=== PATIENT | male | born 1985 | race Two or more races ===

== ENCOUNTER 2018-09-19 07:14 | Emergency (ER) | payer MEDICAID ==
--- NOTE | 2018-09-19 07:47 | EDM.PDOC ---
ED HPI GENERAL MEDICAL PROBLEM - General Chief Complaint: ENT Problem Stated Complaint: RT EAR ACHE Time Seen by Provider: 09/19/18 07:43 Source of Information: Reports: Patient History Limitations: Reports: No Limitations - History of Present Illness INITIAL COMMENTS - FREE TEXT/NARRATIVE: 33 y.o.m -homeless, smokes daily- came to the ed due to right ear pain. No trauma. No other acute medical issues. BP 115/80 RR 18 Pulse ox 100% on RA Temp 36.8 pulse 87 Onset Date: 09/18/18 Onset Time: 07:05 Duration: Hour(s):, Intermittent Location: Reports: Face Quality: Reports: Ache Severity: Mild Improves with: Reports: None Worsens with: Reports: None Associated Symptoms: Reports: No Other Symptoms Right ear Pain Score (Numeric/FACES): 8 - Related Data Allergies Allergy/AdvReac Type Severity Reaction Status Date / Time No Known Allergies Allergy Verified 09/19/18 07:37 Home Meds: Home Meds Hydrocort/Neomycin/Polymyxin B [Cortisporin Otic Soln] 0.01 ml .XX Q8HR #1 bottle 09/19/18 [Rx] Hydrocort/Neomycin/Polymyxin B [Cortisporin Otic Soln] 0.01 ml .XX TID #1 bottle 09/19/18 [Rx] Social & Family History - Tobacco Use Smoking Status *Q: Current Every Day Smoker Years of Tobacco use: 7 Packs/Tins Daily: 1 - Caffeine Use Caffeine Use: Reports: None - Recreational Drug Use Recreational Drug Use: Yes Drug Use in Last 12 Months: No Recreational Drug Type: Reports: Heroin ED ROS ENT - Review of Systems Review Of Systems: See Below Constitutional: Reports: No Symptoms HEENT: Reports: Ear Pain Respiratory: Reports: No Symptoms Cardiovascular: Reports: No Symptoms Endocrine: Reports: No Symptoms GI/Abdominal: Reports: No Symptoms : Reports: No Symptoms Musculoskeletal: Reports: No Symptoms Skin: Reports: No Symptoms Neurological: Reports: No Symptoms Psychiatric: Reports: No Symptoms Hematologic/Lymphatic: Reports: No Symptoms Immunologic: Reports: No Symptoms ED EXAM, ENT - Physical Exam Exam: See Below Exam Limited By: No Limitations General Appearance: Alert, WD/WN, Mild Distress Eye Exam: Bilateral Eye: Normal Inspection Ears: Canal Swelling (erythema) Nose: Normal Inspection, Normal Mucousa, No Blood Mouth/Throat: Normal Inspection, Normal Gums, Normal Lips, Normal Oropharynx Head: Atraumatic, Normocephalic Neck: Normal Inspection, Supple, Non-Tender, Full Range of Motion Respiratory/Chest: No Respiratory Distress, Lungs Clear, Normal Breath Sounds, No Accessory Muscle Use, Chest Non-Tender Cardiovascular: Normal Peripheral Pulses, Regular Rate, Rhythm, No Edema, No Gallop, No Murmur GI/Abdominal: Normal Bowel Sounds, Soft, Non-Tender, No Organomegaly, No Abnormal Bruit, No Mass, Pelvis Stable (Male) Exam: Deferred Rectal (Males) Exam: Deferred Back: Normal Inspection, Full Range of Motion Extremities: Normal Inspection, Normal Range of Motion, Non-Tender, No Pedal Edema Neurological: Alert, Oriented, CN II-XII Intact, Normal Cognition, Normal Gait Psychiatric: Normal Affect, Normal Mood Skin: Warm, Dry, Intact, Normal Color, No Rash Lymphatic: No Adenopathy Course - Vital Signs Text/Narrative:: 33 y.o.m -homeless, smokes daily- came to the ed due to right ear pain. No trauma. No other acute medical issues. BP 115/80 RR 18 Pulse ox 100% on RA Temp 36.8 pulse 87 PE: WNWD Male with minor otitis externa right ear. Impression: Otitis externa right ear Tx: Prescription for Cortisporin ear drops Reexam: Pt was doing fine in the ED, was D/C'd after breakfast Plan: D/C with instructions Last Recorded V/S: Last Vital Signs Temp 36.3 C 09/19/18 08:30 Pulse 84 09/19/18 08:30 Resp 16 09/19/18 08:30 BP 120/87 09/19/18 08:30 Pulse Ox 100 09/19/18 08:30 Departure - Departure Time of Disposition: 07:43 Disposition: Home, Self-Care 01 Condition: Good Clinical Impression: Otitis externa Qualifiers: Noninfectious otitis externa type: unspecified noninfectious type Chronicity: acute Laterality: right - Discharge Information Prescriptions: Hydrocort/Neomycin/Polymyxin B [Cortisporin Otic Soln] 0.01 ml .XX Q8HR #1 bottle Hydrocort/Neomycin/Polymyxin B [Cortisporin Otic Soln] 0.01 ml .XX TID #1 bottle Instructions: Earache, Adult Referrals: PCP,None [Primary Care Provider] - Forms: ED Department Discharge Additional Instructions: Please apply ear drops to your right ear as recommended, please f/u, come back if your symptoms get worse acutely
== END 2018-09-19 08:50 | disposition home or self-care (01) ==
LOC: FB.ED 07:14
DX: H60.91 Unspecified otitis externa, right ear (principal); F17.210 Nicotine dependence, cigarettes, uncomplicated
CPT/HCPCS: 99283

== ENCOUNTER 2018-09-27 20:04 | Emergency (ER) | payer MEDICAID ==
[2018-09-27] MEDS ORDERED: Hydrocortisone/Neomycin/Polymyxin B Otic Susp 10 ML Bottle EARBOTH ONE (20:05)
--- NOTE | 2018-09-27 20:29 | EDM.PDOC ---
ED HPI GENERAL MEDICAL PROBLEM - General Stated Complaint: R EAR PAIN Time Seen by Provider: 09/27/18 20:04 Source of Information: Reports: Patient History Limitations: Reports: No Limitations - History of Present Illness INITIAL COMMENTS - FREE TEXT/NARRATIVE: 33 y.o.w m came to the ED because of right ear pain. Pt was seen in this ED before and was given Abx, which he said he can not afford. No trauma, no other acute medical issues. BP 113/75 RR 20 Pulse ox 100% on RA Temp 36.8 Pulse 75 Onset Date: 09/22/18 Onset Time: 16:00 Duration: Day(s):, Intermittent Location: Reports: Face Quality: Reports: Ache Severity: Mild Improves with: Reports: None Worsens with: Reports: None Context: Reports: Other Associated Symptoms: Reports: No Other Symptoms right ear Pain Score (Numeric/FACES): 8 - Related Data Allergies Allergy/AdvReac Type Severity Reaction Status Date / Time No Known Allergies Allergy Verified 09/27/18 21:48 Home Meds: Home Meds Hydrocort/Neomycin/Polymyxin B [Cortisporin Otic Soln] 0.01 ml .XX Q8HR #1 bottle 09/19/18 [Rx] Hydrocort/Neomycin/Polymyxin B [Cortisporin Otic Soln] 0.01 ml .XX TID #1 bottle 09/19/18 [Rx] Social & Family History - Caffeine Use Caffeine Use: Reports: None ED ROS ENT - Review of Systems Review Of Systems: See Below Constitutional: Reports: No Symptoms HEENT: Reports: Ear Pain Respiratory: Reports: No Symptoms Cardiovascular: Reports: No Symptoms Endocrine: Reports: No Symptoms GI/Abdominal: Reports: No Symptoms : Reports: No Symptoms Musculoskeletal: Reports: No Symptoms Skin: Reports: No Symptoms Neurological: Reports: No Symptoms Psychiatric: Reports: No Symptoms Hematologic/Lymphatic: Reports: No Symptoms Immunologic: Reports: No Symptoms ED EXAM, ENT - Physical Exam Exam: See Below Exam Limited By: No Limitations General Appearance: Alert, WD/WN, Mild Distress Eye Exam: Bilateral Eye: Normal Inspection Ears: Canal Swelling Nose: Normal Inspection Mouth/Throat: Normal Inspection, Normal Lips Head: Atraumatic, Normocephalic Neck: Normal Inspection, Supple, Non-Tender, Full Range of Motion Respiratory/Chest: No Respiratory Distress, Lungs Clear, Normal Breath Sounds Cardiovascular: Normal Peripheral Pulses, Regular Rate, Rhythm, No Edema, No Gallop, No JVD, No Murmur, No Rub GI/Abdominal: Normal Bowel Sounds, Soft, Non-Tender, No Organomegaly, No Distention, No Abnormal Bruit, No Mass, Pelvis Stable (Male) Exam: Deferred Rectal (Males) Exam: Deferred Back: Normal Inspection, Full Range of Motion Extremities: Normal Inspection, Normal Range of Motion, Non-Tender, No Pedal Edema Neurological: Alert, Oriented, CN II-XII Intact, Normal Cognition, Normal Gait, Normal Reflexes, No Motor/Sensory Deficits Psychiatric: Normal Affect, Normal Mood Skin: Warm, Dry, Intact, Normal Color, No Rash Lymphatic: No Adenopathy Course - Vital Signs Text/Narrative:: 33 y.o.w m came to the ED because of right ear pain. Pt was seen in this ED before and was given Abx, which he said he can not afford. No trauma, no other acute medical issues. BP 113/75 RR 20 Pulse ox 100% on RA Temp 36.8 Pulse 75 PE: WNWD male with right OE Impression: Right OE Tx: Cortisporine neda Reexam: Improved Plan: D/C with instructions Last Recorded V/S: Last Vital Signs Temp 36.9 C 09/27/18 20:05 Pulse 69 09/27/18 20:05 Resp 17 09/27/18 20:05 BP 113/75 09/27/18 20:05 Pulse Ox 100 09/27/18 20:05 Departure - Departure Time of Disposition: 20:32 Disposition: Home, Self-Care 01 Condition: Good Clinical Impression: Otitis externa Qualifiers: Noninfectious otitis externa type: unspecified noninfectious type Chronicity: acute Laterality: right - Discharge Information Instructions: Otitis Media, Adult, [id number] Referrals: PCP,None [Primary Care Provider] - Forms: ED Department Discharge Additional Instructions: Please use Cortisporin ear drops 3 drops in right ear 3 times daily, please f/u , come back if your symptoms get worse acutely. Please take ibuprofen 600 mg and tylenol 1000 every 8 hours as needed for pain and discomfort.
== END 2018-09-27 20:47 | disposition home or self-care (01) ==
LOC: FB.ED 20:04
DX: H60.91 Unspecified otitis externa, right ear (principal)
CPT/HCPCS: 99282; A9270

== ENCOUNTER 2018-12-23 01:34 | Emergency (ER) | payer MEDICAID ==
--- NOTE | 2018-12-23 02:02 | EDM.PDOC ---
ED HPI GENERAL MEDICAL PROBLEM - General Stated Complaint: RASH Time Seen by Provider: 12/23/18 01:40 Source of Information: Reports: Patient History Limitations: Reports: No Limitations - History of Present Illness INITIAL COMMENTS - FREE TEXT/NARRATIVE: 33-year-old male who reports he has had a rash in his perineal area and groin area for the past 6 years and it seems to be worsening with time. Now he has some of this rash on his abdomen and he presents for evaluation of this. Reports there is a stinging pain associated with it that he rates as a 5-6/10. He also reports it is somewhat itchy. He's had no trouble breathing. He's had no fevers. He's had no dysuria or hematuria. He states he has never sought medical care for this. There is no rash elsewhere. There are no other associated signs or symptoms. There are no other modifying factors. 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 Social & Family History - Tobacco Use Smoking Status *Q: Current Every Day Smoker - Caffeine Use Caffeine Use: Reports: None - Alcohol Use Alcohol Use History: No - Recreational Drug Use Recreational Drug Use: Yes Drug Use in Last 12 Months: No Recreational Drug Type: Reports: Heroin (Previous IV drug abuse. States he has been sober since 2017.) - Living Situation & Occupation Social History Comment: States he is homeless. ED ROS GENERAL - Review of Systems Review Of Systems: See Below Constitutional: Reports: No Symptoms HEENT: Reports: No Symptoms Respiratory: Reports: No Symptoms Cardiovascular: Reports: No Symptoms Endocrine: Reports: No Symptoms GI/Abdominal: Reports: No Symptoms : Reports: No Symptoms Musculoskeletal: Reports: No Symptoms Skin: Reports: Rash (On peritoneal and groin area and also abdominal wall.) Neurological: Reports: No Symptoms Hematologic/Lymphatic: Reports: No Symptoms Immunologic: Reports: No Symptoms ED EXAM, SKIN/RASH Exam: See Below Exam Limited By: No Limitations General Appearance: Alert, WD/WN, No Apparent Distress Eye Exam: Bilateral Eye: EOMI, Normal Inspection, PERRL Ears: Normal External Exam, Hearing Grossly Normal Nose: Normal Inspection, Normal Mucosa, No Blood Throat/Mouth: Normal Inspection, Normal Lips, Normal Teeth, Normal Gums, Normal Oropharynx, Normal Voice, No Airway Compromise Head: Atraumatic, Normocephalic Neck: Normal Inspection, Supple, Non-Tender, Full Range of Motion Respiratory/Chest: No Respiratory Distress, Lungs Clear, Normal Breath Sounds, No Accessory Muscle Use, Chest Non-Tender Cardiovascular: Normal Peripheral Pulses, Regular Rate, Rhythm, No JVD Peripheral Pulses: 2+: Radial (L), Radial (R) GI/Abdominal: Normal Bowel Sounds, Soft, Non-Tender, No Organomegaly, No Mass (Male) Exam: No Hernia, Other (Uncircumcised penis with both testes descended. No masses.) Back Exam: Normal Inspection Extremities: Normal Inspection Neurological: Alert, Oriented, CN II-XII Intact, Normal Cognition, No Motor/ Sensory Deficits Skin: Warm, Dry, Normal Color, Rash (In both groins and and perineal area and on lower abdominal wall) Location, Skin: Abdomen, Genital (And perineal area), Groin Characteristics: Maculopapular, Other (Consistent with fungal rash) Associated features: Scaling, Rough Course - Vital Signs Last Recorded V/S: Last Vital Signs Temp 36.4 C 12/23/18 01:34 Pulse 100 12/23/18 01:34 Resp 17 12/23/18 01:34 BP 114/78 12/23/18 01:34 Pulse Ox 94 L 12/23/18 01:34 Departure - Departure Time of Disposition: 02:10 Disposition: Home, Self-Care 01 Condition: Good Clinical Impression: Tinea cruris - Discharge Information Prescriptions: Clotrimazole [Antifungal] 1 dose TP BID #1 tube Hydrocortisone [Hydrocortisone 2.5% Crm] 1 dose TP BID #1 tube Referrals: PCP,None [Primary Care Provider] - Rubia Martinez SANITARY AIDE [Nurse Practitioner] - Additional Instructions: You appear to have a fungal infection to your groin, perineal area and your lower abdominal wall. You should apply the clotrimazole cream and the hydrocortisone cream to the areas of rash sparingly and rub in completely twice daily. I have referred you to Rubia Martinez NP. You should follow-up with her in regard to the rash and any other medical concerns.
== END 2018-12-23 02:35 | disposition home or self-care (01) ==
LOC: FB.ED 01:34
DX: B35.6 Tinea cruris (principal); F17.200 Nicotine dependence, unspecified, uncomplicated
CPT/HCPCS: 99283